=== PATIENT | female | born 1980 | race Caucasian/White ===

== ENCOUNTER 2016-07-07 07:15 | Day surgery (SDC) | payer OTHER ==
[2016-07-07] VITALS (7 sets, daily range): BP systolic 122–137; BP diastolic 68–82; PULSE 68–84; RESP 12–18; O2SAT 96–100
[~2016-07-07] VITALS: Ht 169.6 cm; Wt 72.8 kg
[~2016-07-07 07:15] MED LIST: CeFAZolin Inj 2 GM in IV Premix 1 EACH IV ONE; FLUT16SP NS; RANI150C4 PO
[2016-07-07] MEDS ORDERED: Propofol 10,000 mCg/mL 20 mL Inj ONE (07:16)
[2016-07-07] MEDS ORDERED: fentaNYL-PF 50 mCg/mL 2 mL Inj ONE (07:16)
[2016-07-07] MEDS ORDERED: HYDROmorphone 2 mg/mL Inj ONE (07:16)
[2016-07-07] MEDS ORDERED: Glycopyrrolate 0.2 mg/mL 5 mL Inj ONE (07:16)
[2016-07-07] MEDS ORDERED: Neostigmine 1 mg/mL 5 mL Inj ONE (07:16)
[2016-07-07] MEDS ORDERED: Dexamethasone 4 mg/mL Inj ONE (07:16)
[2016-07-07] MEDS ORDERED: EPHEDrine/NS 5 mg/mL 5 mL Syringe ONE (07:16)
[2016-07-07] MEDS ORDERED: Ondansetron 2 mg/mL 2 mL Inj ONE (07:16)
[2016-07-07] MEDS ORDERED: Phenylephrine/NS 100 mCg/mL 10 mL Syringe IVPUSH ONE (07:16)
[2016-07-07] MEDS ORDERED: Lidocaine PF 1% 30 mL Inj ONE (07:16)
[2016-07-07] MEDS ORDERED: Rocuronium 10 mg/mL 5 mL Inj ONE (07:16)
[2016-07-07] MEDS: Lactated Ringer's 1,000 ML IV SCH ×2 (07:22→09:21)
[2016-07-07] MEDS ORDERED: excedrin PO (07:32)
[2016-07-07] MEDS ORDERED: Bupivacaine-MPF 0.5% W/EPI 30 mL Inj INJ ONE (09:01)
[2016-07-07] MEDS: Acetaminophen IV 1,000 MG in IV Premix 1 EACH IV SCH ×2 (09:01→09:31)
--- NOTE | 2016-07-07 10:09 | PCM.HPANE ---
Patient Data Surgeon Admitting Provider: Attending Provider:Brad Corona MD Primary Care Physician:Daisy Payton DO Other Provider:Alicia Garcia Anesthesia Reason for Visit Abnormal Uterine Bleeding Ht/WT & BMI Height (Feet): 5 Height (Inches): 6.75 Weight (Kilograms): 62 Body Mass Index 21.00 Allergies Coded Allergies: No Known Allergies (Verified , 04/26/13) Past Anesthesia History Anesthesia History: Denies:: Abnormal Airway, Anesthesia Reactions, Difficult Intubation, Fam Anesthesia Reaction, Malignant Hyperthermia Diabetes History Hx Diabetes?: No MRSA MRSA: No Medications Hypertension Medication: No Home Meds Incl Beta Ya: No Reported Medications [excedrin] No Conflict Check PO prn 07/07/16 Ranitidine 150 Mg [id number] Mg PO BID Ref 0 07/06/16 Fluticasone Propionate (Fluticasone Propionate Nasal)16 Gm [place].susp1 [place] NS BID #16 GM Ref 0 07/06/16 Discontinued Scripts Ascorbic Acid 500 Mg [id number] Mg PO DAILY #90 TABLET Ref 0 Prov:Melissa Farah DO 07/19/14 Ferrous Sulfate 325 Mg [id number] Mg PO DAILY #90 TABLET Ref 0 Prov:Melissa Farah DO 07/19/14 [Oxycodone/Acetaminophen] (Percocet 5-325)1 TAB TABLET No Conflict Check1-2 Tab PO Q4-6H PRN For Pain #30 TABLET Prov:Melissa Farah DO 07/19/14 [Ibuprofen] (Motrin)800 MG TABLET No Conflict [id number] Mg PO Q8 PRN For Pain # 60 TABLET Prov:Melissa Farah DO 07/19/14 [Docusate Sodium] (Colace)100 MG CAPSULE No Conflict [id number] Mg PO BID #60 CAPSULE Prov:Melissa Farah DO 07/19/14 History HEENT History: Denies:: Abnormal Airway Cataracts Difficult Intubation Dysphagia Glaucoma Hearing Problem Sinus Problem TMJ Denture Type: Full- Upper Cardiovascular History: Positive for:: Heart Murmur (echo 2000- ef 65%) Denies:: AICD Abdominal Aortic Aneurism Atrial Fibrillation Cardiac Surgery Chest Pain Congestive Heart Failure Edema Hypertension Pacemaker Peripheral Vascular Rheumatic Fever Thrombophlebitis Valvular Heart Disease Hx of Respiratory Problem?: No Respiratory History: Denies:: Asthma COPD Emphysema Oxygen Administration Pneumonia Pulmonary Embolism Tuberculosis Use of C-PAP Machine Use of Inhalers / NEBS Hx Neurologic Problems?: Yes Neurological History: Positive for:: Headaches (sometimes over a year between headaches) Denies:: Alzheimer's Disease CVA Dementia Dizziness Multiple Sclerosis Parkinson's Disease Seizures TIA Hx of GI Problems?: Yes Gastrointestinal History: Positive for:: Gastroesphageal Reflux Denies:: Cirrhosis Diverticulitis Gall Bladder Disease Gastrointestinal Bleeding Heartburn Hepatitis Hiatal Hernia Liver Disease Rectal Bleeding Hx of Problems?: Yes Genitourinary History: Positive for:: Kidney Stones (passed spontaneously) Denies:: Urinary Tract Infection Female Hx: Denies:: Currently Problems with Breasts? Skin History: Denies:: History Skin Disorders? Pressure Ulcers Hx Musculoskeletal Problems?: Yes Musculoskeletal History: Positive for:: Back Injury (low back pain) Denies:: Degenerative Joint Fibromyalgia Joint Replacement Musculoskeletal Trauma Myasthenia Gravis Osteoarthritis Hx of Psycho/Social Problems?: No Psycho Social History: Denies:: Anxiety Hx Depression Hx Surgeries?: Yes ( x2) Hx Any Other Health Problems?: Yes Other History: Denies:: Cancer Thyroid Disease History Blood Transfusions: Positive for:: Accept Blood Products? Denies:: Blood Transfusions Hx Diabetes: No Hx Alcohol Use: YesAlcoholic Drinks Per Day: once monthlyHx Substance Use: No Smoking Status: Heavy Tobacco Smoker Have You Smoked inLast 12 mo: Yes (1/2 pack daily) Stop/Bang S-Snoring: Do You Snore Loudly: No T-Tired: feel tired, fatigued: No O-Obsered: Observed not breath: No P-Blood Pressure: treated: No B- Body Mass Index > 35 kg/m2: No A- Age over 50: No N- Neck Large Circumference: No G- Gender Male: No GILL Total Score: 0 Risk Assessment Category Category 1A: Patient has history of documented sleep apnea, and HAS NOT received any narcotic, sedative or anesthesia administration during this stay. Category 1B: Patient has history of documented sleep apnea, and HAS received any narcotic , sedative or anesthesia administration during this stay Category 2: Patient has SUSPECTED Obstructive Sleep Apnea, and HAS received any narcotic , sedative or anesthesia administration during this stay. Category 3: Patient has SUSPECTED Obstructive Sleep Apnea and HAS NOT received narcotic, sedative or anesthesia administration during this stay. Category 4: Outpatient in Procedural Areas with known sleep apnea or who screen positive for High Risk via the STOP/BANG questionnaire. Exam Exam General Appearance: Alert, Oriented X3 HEENT/AIRWAY: MP 2, Neck Movement (FROM) Lungs: Clear to Auscultation, Clear to Percussion Heart: Regular Rate/Rhythm Meds/Labs/Diagnostics Admission Meds Current Medications Lactated Ringer's (Lr) 1,000 ml @ 120 mls/hr Q8H20M IV Last administered on t 07:22; Start 07/07/16 at 05:00; Stop 07/07/16 at 13:19 Plan Impression Patient chart reviewed, patient interviewed and anesthestic plan with risks, benefits, and alternatives discussed, and informed consent obtained. ASA Physical Status: ASA2 Mod Systemic Disease Anesthetic Plan: GA Bene/Risks/Altern/Consents: Yes HP Complete Prior to Induction: Yes Jose Rafael Lino MD Jul 07, 2016 08:11
[2016-07-07] MEDS ORDERED: Lactated Ringer's 1,000 ML IV SCH (10:10)
[2016-07-07] MEDS ORDERED: Lactated Ringer's 500 ML IV PRN (10:10)
[2016-07-07] MEDS ORDERED: EPHEDrine Sulfate 50 mg/mL Inj IVPUSH PRN (10:10)
[2016-07-07] MEDS ORDERED: HYDROmorphone 1 mg/mL Inj IVPUSH PRN ×2 (10:10→11:55)
[2016-07-07] MEDS ORDERED: Labetalol 5 mg/mL 4 mL Inj IV PRN (10:10)
[2016-07-07] MEDS ORDERED: MetoCLOpramide 5 mg/mL 2 mL Inj IVPUSH PRN ×2 (10:10→11:55)
[2016-07-07] MEDS ORDERED: Ondansetron 2 mg/mL 2 mL Inj IVPUSH PRN ×2 (10:10→11:55)
[2016-07-07] MEDS ORDERED: Atropine 0.4 mg/mL Inj IVPUSH PRN (10:10)
[2016-07-07] MEDS ORDERED: Phenylephrine 10,000 mCg/mL Inj IVPUSH PRN (10:10)
[2016-07-07] MEDS ORDERED: fentaNYL-PF 50 mCg/mL 2 mL Inj IVPUSH PRN (10:10)
--- NOTE | 2016-07-07 11:53 | PCM.SURGOP ---
Surgical Operative Report Date of Service: Jul 07, 2016 Pre Operative Diagnosis 1. AUB 2. Menorrhagia Post Operative Diagnosis 1. AUB 2. Menorrhagia Procedure: 1. Total laparoscopic hysterectomy with bilateral salpingectomy 2. Cystoscopy of the bladder Surgeon and Circuit Breaker Supervisor: Surgeon: Brad Corona MD Assistants: Serina Bojorquez MD was necessary for this procedure to help with exposure and her surgical expertise. Indication for Procedure 35-year-old 7 para 6 with a history of abnormal uterine bleeding in the form of menorrhagia and irregular periods. She has failed conservative management with oral contraceptives, Mirena IUD and Depo-Provera. Findings: Intraoperative findings showed a single omental adhesion to the anterior abdominal wall. The pelvis and upper abdomen were otherwise free of any adhesions. Survey of Her abdomen was within normal limits. The gallbladder appeared normal. The appendix was not visualized during the case. The uterus and ovaries appeared normal bilaterally. There was evidence of a previous tubal ligation. Cystoscopy findings showing a normal-appearing bladder. There was bilateral spillage of urine from both ureters at the end of the procedure. There was no sutures or defects seen on cystoscopy at the end of the case. Procedure Details Patient was taken to the operating room where her general anesthesia was obtained without difficulty. She was placed in a lithotomy position in the [facility] and prepared and draped in the normal sterile fashion. A bivalve speculum was inserted into the patient's vagina and the cervix was identified and grasped with a single-tooth tenaculum and a V care uterine manipulator was inserted without difficulty. A Vargas catheter was placed. Our attention was then turned to the patient's abdomen. The umbilicus was injected with half percent Marcaine with epinephrine. A varies needle was inserted directly into the patient's peritoneal cavity. Water drop test and needle aspirate was confirmatory and negative. A pneumoperitoneum was then obtained with CO2 gas to a pressure of 15 mmHg. A 5 mm skin incision was made with a scalpel at the base of the umbilicus and a 5 mm blunt trocar was inserted directly into the patient's peritoneal cavity using the Visiport function of the trocar. Survey of abdomen and pelvis noted as above. A right and left lower quadrant port site were marked off and skin was injected with half percent Marcaine with epinephrine. Two 5mm skin incisions were made with a scalpel and 5 mm blunt trochars were inserted under direct visualization. The patient was placed in 30 of Trendelenburg. The uterus was elevated. A total laparoscopic hysterectomy with bilateral salpingo- oophorectomy was performed using the Thunderbeat cautery device. Both ureters were identified at the beginning of the procedure. The utero-ovarian ligaments were transected bilaterally and this incision was carried around to the round ligament. The round ligament was transected bilaterally. The anterior leaf of the broad ligament was then opened and carried anteriorly creating a bladder flap. The bladder was dissected off the lower uterine segment bluntly . The uterine arteries skeletonized bilaterally. They were cauterized and transected using the Thunderbeat cautery device. The V care cup was identified and the vagina was entered sharply with the Thunderbeat cautery device. This incision was carried around circumferentially freeing the uterus from the vagina. The uterus was then removed through the patient's vagina. The pelvis was irrigated with saline. The vaginal cuff was then reapproximated with a 2-0 V lock suture in a running fashion. Good hemostasis was assured. The uterosacral ligaments were incorporated into the vaginal cuff closure using the V lock suture. This completed the hysterectomy portion of the case. All instruments were removed from the patient's perineal cavity. The pneumoperitoneum was released and the patient given several deep inspiratory breath to help expel any excess CO2 gas. The skin incisions were reapproximated with 4-0 Monocryl in a subcuticular fashion and Dermabond applied. A cystoscopy of the bladder was then performed using a 70 cystoscope. The Vargas catheter was removed and a 70 cystoscope was inserted into the bladder. The bladder was distended with 300 mL's of normal saline. Survey of the bladder was performed and there was bilateral spillage of urine from both ureters at the end of procedure and the bladder was noted to be free of any sutures or defects. The cystoscope was then removed. All lap instrument and needle counts were correct 2 at the end of the procedure Complications There were no periprocedural complications identified. Surgical Specimen Removed: Yes Specimen sent to Pathology: Yes Surgical Specimen description: Uterus with portions of the left and right fallopian tube Anesthetic Plan: GA Grafts, Implants: None Output, Estimated Blood Loss: 20 Blood Administration during ontiveros: No Catheters: None Post Operative Plan Routine postoperative care. Plan to discharge home today when awake and stable. Brad Corona MD Jul 07, 2016 11:53
[2016-07-07] MEDS ORDERED: diphenhydrAMINE 25 mg Capsule PO PRN (11:55)
--- NOTE | 2016-07-07 12:48 | PCM.ANEP1 ---
Post Anesthesia Phase 1 PACU Phase 1 Assessment Date of Service: Jul 07, 2016 Vital Signs Vital Signs Date Time Temp Pulse Resp B/P Pulse Ox O2 Delivery O2 Flow Rate FiO2 07/07/16 12:10 83 13 125/70 98 Room Air 07/07/16 12:05 72 14 126/76 99 Nasal Cannula 2 07/07/16 12:00 73 12 137/70 99 Nasal Cannula 2 07/07/16 11:46 36.7 84 16 137/82 100 Simple Mask 10 07/07/16 08:14 36.0 81 18 125/78 99 Room Air Anesthetic Administered: GA Level of Alertness: Awake, talking YAO's with Equal Strength: Yes Pain: No Nausea or Vomiting: No Oxygen Delivery: Simple Mask Lungs: Clear to Auscultation, Clear to Percussion Jose Rafael Lino MD Jul 07, 2016 12:48
--- NOTE | 2016-07-07 12:48 | PCM.ANEP2 ---
Post Anesthesia Evaluation ASA/CMS Post Anesthesia VS in Patient's Normal Range?: Yes Resp Stable; Airway Patent?: Yes CV Function & Hydration Stable: Yes Mental Status Recovered?: Yes Pain control Satisfactory?: Yes N/V Control Satisfactory?: Yes Jose Rafael Lino MD Jul 07, 2016 12:48
--- NOTE | 2016-07-11 10:03 | PATH ---
SURGICAL PATHOLOGY Attending Physician:Brad Corona, CASE STATUS: Signed Out PATIENT NAME: EBONI CARRANZA PID: [id number] : 1980 DATE COLLECTED:07/07/2016 21:49 SPECIMEN: 1: Fallopian Tube, Biopsy 2: Fallopian Tube, Biopsy 3: Uterus +/- tubes/ovaries, except neoplastic, prolapse CLINICAL HISTORY: ABNORMAL UTERINE BLEEDING 1). RIGHT FALLOPIAN TUBE 2). LEFT FALLOPIAN TUBE 3). UTERUS FINAL DIAGNOSIS: 1. Right Fallopian Tube: Benign paratubal cyst. 2. Left Fallopian Tube: No diagnostic abnormality. 3. Uterus, Hysterectomy: Cervix: Benign hemangioma. Endometrium: Mid secretory endometrium. Myometrium: Adenomyosis. Uterine serosa: No diagnostic abnormality. ICD10 N80.0 GROSS DESCRIPTION: The specimens are received in formalin, labeled with the patient's name, and sublabeled as the following: (1) right fallopian tube; (2) left fallopian tube; (3) uterus. (1) The specimen consists of a fimbriated fallopian tube (length-3.5 cm, diameter-0.5 cm) received in 2 pieces. The serosa is pale alonzo smooth and shiny with a paratubal cyst of a brown 0.9 x 0.6 x 0.5 cm) containing clear colorless fluid adjacent to the fimbria. The lumen is alonzo and unremarkable. Section code: (1A) fallopian tube, serially sectioned; (1B) fimbria, bivalved, entirely submitted. (2) The specimen consists of a fimbriated segment of fallopian tube (length-1.6 cm, diameter-0.7 cm). Surface is alonzo smooth and shiny. The lumen is alonzo and unremarkable. Section code: (2A) fallopian tube, serially sectioned; (2B) fimbria, bivalved. Specimen entirely submitted. (3) The specimen consists of a uterus (133 g, 4.7 cm AP, 9.5 cm SI, 7.0 cm ML). The ovaries and fallopian tubes are absent. The cervix (2.7 cm in AP, 3.2 cm ML) has a transverse os and patent endocervical canal. The endometrium (average thickness-0.2 cm) is alonzo-white smooth and flat. The myometrium (thickness-2.4 cm) is alonzo-white and unremarkable. The serosa is alonzo smooth and shiny. Section code: (3A) anterior cervix; (3B) posterior cervix; (3C, 3D) anterior endomyometrium; (3E-3F) posterior endomyometrium. 07/08/16 ICD-9 CODES: CPT CODES: 1: 48332 2: 75500 3: 05958 Electronically Signed Out Beny Almodovar MD, PhD [facility] [address], [place] [address] Technical component performed at [facility] [address], [place], [address]
== END 2016-07-07 23:59 | disposition home or self-care (01) ==
LOC: SAS 07:15
PROVIDERS: ATTEND Obstetrics & Gynecology
DX: N80.0 Endometriosis of uterus (principal); N93.9 Abnormal uterine and vaginal bleeding, unspecified; N83.8 Other noninflammatory disorders of ovary, fallopian tube and broad ligament; R51 Headache; K21.9 Gastro-esophageal reflux disease without esophagitis; F17.210 Nicotine dependence, cigarettes, uncomplicated; R01.1 Cardiac murmur, unspecified; Z79.899 Other long term (current) drug therapy
CPT/HCPCS: 58571; J0131; J0690; J1100; J1170; J1885; J2175; J2370; J2405; J2710; J3010; J7120